=== PATIENT | male | born 1970 ===

== ENCOUNTER 2022-07-26 08:46 | Outpatient (CLI) | payer OTHER, SELFPAY ==
--- NOTE | ~2022-07-26 | MR_ITS ---
EXAMINATION: MR_[id number]_MR DATE: 07/26/2022 09:55 INDICATION: Chronic left knee and ankle pain TECHNIQUE: Magnetic resonance imaging (MRI) of the left knee was performed without intravenous contra st. Sequences included coronal PD-weighted FSE, coronal PD-weighted FS FSE, sagittal T2-weighted FSE , sagittal PD-weighted FS FSE and axial PD weighted fat saturated FSE. MRI of the left ankle was perf ormed without intravenous contrast. Sequences included axial, sagittal and coronal PD-weighted FSE an d PD-weighted FS FSE COMPARISON: None. FINDINGS: LEFT KNEE: Medial compartment: Medial meniscus is normal. Mild partial-thickness cartilage loss along the anterior to central weight bearing medial femoral condyle. Along the anterior weightbearing medial femoral condyle there is supe rimposed partial-thickness chondral fissuring with a few tiny foci of minimal underlying subarticular edema-like signal change. Minimal cartilage loss with mild chondral surface irregularity along the a nterior third of the medial tibial plateau. Lateral compartment: Lateral meniscus is normal. Articular cartilage is normal. Patellofemoral compartment: Partial-thickness cartilage loss and deep chondral fissuring with scattered mild underlying edema-lik e signal change at the medial patellar facet and apical ridge. Trochlear cartilage is relatively pres erved. Ligaments and tendons: Anterior and posterior cruciate ligaments are normal. The medial collateral ligament and fibular carlito ateral ligament complex are normal. Mild enthesopathy small enthesophytes at the distal quadriceps an d patellar tendons. The visualized medial and lateral hamstring tendons as well as the iliotibial ban d are normal. Fluid: Physiologic amount of fluid in the joint space. No loose osteochondral bodies identified. Osseous/other: Bone alignment is normal. No fracture or pathologic marrow replacing process. LEFT ANKLE: Medial ankle ligaments: Small ganglion cyst measuring 8 mm in maximal length extending along the intact appearing posterior f ibers of the otherwise normal deep deltoid ligament. The superficial deltoid ligament as well as the spring ligament are normal. Lateral ankle ligaments: The anterior and posterior inferior tibiofibular ligaments are normal. The anterior talofibular, calc aneofibular and posterior talofibular ligaments are normal. Tendons: Achilles tendon is normal. The peroneus longus and brevis tendons are normal. The tibialis anterior a nd extensor hallucis longus and extensor digitorum longus tendons are normal. The tibialis posterior, flexor digitorum longus and flexor hallucis longus tendons are normal. Plantar fascia: Plantar aponeurosis is normal. Bones/other: Bone alignment is normal. Small bone island at the head of the talus. No reactive edema, fracture or pathologic marrow replacing process. Mild osteoarthritis at the talonavicular, naviculocuneiform and second-fourth tarsal metatarsal joints. Fluid: Physiologic amount fluid in the joint spaces. No tenosynovitis, bursitis or other abnormal fluid carlito ections. IMPRESSION: 1. Mild osteoarthritis with moderate grade chondromalacia in the medial compartment and high-grade ch ondromalacia in the patellofemoral compartment of the left knee. 2. Additional mild polyarticular osteoarthritis at the left ankle and a few joints in the visualized left mid and hindfoot. 3. Small intrasubstance ganglion cyst extending along the intact appearing posterior fibers of the ot herwise unremarkable deep deltoid ligament. Reviewed, dictated and finalized at location A. IMPRESSION: 1. Mild osteoarthritis with moderate grade chondromalacia in the medial compart ment and high-grad
== END 2022-07-26 08:47 ==
PROVIDERS: PCP Orthopaedic Surgery; Visit Provider Orthopaedic Surgery
DX: M25.572 Pain in left ankle and joints of left foot (principal); G89.29 Other chronic pain; M15.9 Polyosteoarthritis, unspecified; M67.472 Ganglion, left ankle and foot
CPT/HCPCS: 73721